=== PATIENT | female | born 1960 | race Caucasian/White ===

== ENCOUNTER 2023-07-21 13:07 | Emergency (ER) | payer OTHER, SELFPAY ==
[2023-07-21 13:10] VITALS: BP 141/97
[2023-07-21 14:21] VITALS: BP 170/82; BMI 35.7
--- NOTE | 2023-07-21 14:37 | ED.GENMED ---
History of Present Illness
General
Chief Complaint: Swelling
Source: patient and spouse
Exam Limitations: none
Time Seen by Provider: 07/21/23 14:17
Nursing documentation reviewed up to this point in time: agreed with
Travel History
Have you had any contact with someone who has COVID-19?: No
Do you have any symptoms of coronavirus? Fever > 100 degrees, chills, cough, shortness of breath, sore throat, loss of taste or smell, muscle aches, or headache?: No
History of Present Illness
History of Present Illness:
63-year-old female history of chronic pain syndrome after back surgery nondrinker non-smoker, no history of DVT PE, presents with lower extremity swelling in her feet after eating Ramen noodles started about 2 weeks ago, then developed some
discoloration of her left foot that improved with walking, said intermittent shortness of breath, today pain in her left thigh noted to have Mendieta's cyst and sounds like, takes vaginal estrogens, no long car trips or plane trips,
Past History
Past History
ED Past Medical History: Other (Back surgery chronic pain syndrome)
ED Past Surgical History: Gynecological and Orthopedic
Social History
Tobacco: Non-smoker
Alcohol: None
Drug: None
Personal:
Living: with family
Employment: Employed
Review of Systems
Review of Systems
All Other Systems: Not applicable
Constitutional: Denies fever or fatigue
Respiratory: Reports trouble breathing; Denies cough
Cardiac: Reports no symptoms
ABD/GI: Reports no symptoms
Musculoskeletal: Reports muscle stiffness and edema
Neurological: Reports no symptoms
Endocrine: Reports no symptoms
Hematologic/Lymphatic: Reports bruising (Previously none now)
Psychiatric: Reports no symptoms
Phy Exam
Physical Exam
Physical Exam:
Physical Exam
General: no apparent distress, not acutely ill
Neck: No jaundice
Heart: s1/s2 regular rate and rhythm, no murmur. equal radial pulses.
Lungs: no acute respiratory distress. clear bilaterally
Abdomen: Nontender
Neuro: alert and oriented. no focal neurological deficits
Skin: no rash
Psychiatric: well kept. interactive and cooperative
Extremities: Mild bilateral foot ankle swelling no pitting edema extremities are warm and well-perfused
Scores
Heart Failure Risk
Heart Failure Risk Score: Not Applicable
Course
Orders/Labs/Results
Orders:
Orders
07/21/23 14:28
Complete Blood Count/With Diff Urgent
Comprehensive Metabolic Panel Urgent
07/21/23 14:33
Add On- LAB Urgent
Tests Added?: pBNP
07/21/23 14:34
CT Chest Pe Study Urgent
Comment:
Reason For Exam: sob leg swelling
US Periph Venous LOWER Ext LT Urgent
Comment:
Reason For Exam: swelling
07/21/23 14:40
Electrocardiogram (*1) Urgent
Reason for Study: Shortness of Breath
EKG- Treatment ONCE
07/21/23 14:45
NT-proBNP Urgent
Troponin I Urgent
Abnormal Lab Results
07/21/23
14:28
Hct 36.8 L %
(37.0-47.0)
Chloride 108 H mmol/L
(98-107)
BUN 24 H mg/dl
(7-17)
Glucose 111 H mg/dl
(70-99)
Total Protein 6.1 L g/dl
(6.3-8.2)
07/21/23 14:28
07/21/23 14:28
Vital Signs
Initial and Last Documented VS:
Initial Vital Signs
Temp Pulse Resp BP Pulse Ox
98.8 F 84 16 141/97 98
07/21/23 13:10 07/21/23 13:10 07/21/23 13:10 07/21/23 13:10 07/21/23 13:10
Last Documented Vital Signs
Temp Pulse Resp BP Pulse Ox
98.8 F 71 16 170/82 98
07/21/23 13:10 07/21/23 14:21 07/21/23 14:21 07/21/23 14:21 07/21/23 14:21
MDM/Problems Addressed
Differential Diagnosis Includes:
DVT PE heart failure muscle strain no signs of acute vascular occlusion
MDM/Problems Addressed:
Lower extremity swelling, shortness of breath
Chronic conditions affecting care:
Back surgery chronic pain
Acute Exacerbation and/or Progression of Chronic Illness:
Back surgery chronic pain syndrome
*Radiology
Radiology exam reviewed: preliminary read by ED provider
*Pulse Oximetry
Patient hypoxic: no
*EKG
Interpreted by ED Provider?: Yes
Interpretation: abnormal
Comparison EKG: no comparison EKG present
Heart Rate: 80
Rate: normal
Rhythm: sinus
Ischemia: non-specific ST changes
*Critical Care Note
Total Time (30-74mins, 75-104mins- exclusive of procedures): Not Applicable
Update Note
Update Note:
Update ultrasound report noted CT report noted troponin noted proBNP noted
ED Attending Note
-
Portions of this chart may have been created with voice recognition software.� Occasional wrong word or��sound alike� substitutions may have occurred due to the inherent limitations of voice recognition software.
Discharge Plan
Departure
Patient Disposition: Home (Routine Discharge)
Date of Disposition: 07/21/23
Time of Disposition: 17:00
Patient with high blood pressure during this ER visit?: Yes
Condition: Good
Discharge Problem:
Dyspnea, Leg swelling, Mendieta's cyst
Instructions: BLOOD PRESSURE, Dependent Edema (DC)
Prescriptions:
No Action
meloxicam [Mobic] 15 MG tablet
15 mg PO DAILY
amoxicillin-pot clavulanate 875-125 mg tablet
1 tab PO BID 10 Days Qty: 20 0RF
Referrals:
Paul Muñoz, DO [Family Provider] -
Interventions
Interventions:
*Risk Screen - Suicide Last Done: 07/21/23 13:10
*General Assessment Last Done: 07/21/23 13:10
*Neglect/Abuse Screening Last Done: 07/21/23 13:10
*ED COVID-19 Vaccine History Last Done: 07/21/23 14:21
ED- Cardiac Assessment Last Done: 07/21/23 14:21
ED- Pulmonary Assessment Last Done: 07/21/23 14:21
ED-Skin Assessment Last Done: 07/21/23 14:21
Discharge Date and Time
Print Language: WELSH
[2023-07-21 14:51] LABS: % Basophils 0.6 % (0-2); % Eosinophils 4.1 % (0-6); % Immature Granulocytes 0.2 % (0-0.5); % Lymphocytes 40.7 % (20.5-51.1); % Monocytes 8.8 % (1.7-9.3); % Neutrophils 45.6 % (42.2-75.2); Absolute Eosinophils 0.2 10^3/uL (0-0.7); Absolute Lymphocytes 2.1 10^3/uL (1.2-3.4); Absolute Monocytes 0.5 10^3/uL (0.1-0.6); Absolute Neutrophils 2.3 10^3/uL (1.4-6.5); Hematocrit 36.8 % (37.0-47.0); Hemoglobin 12.8 g/dL (12.0-16.0); Mean Corp Hgb Conc. 34.8 g/dL (33.0-37.0); Mean Corpuscular Hgb 29.6 pg (27.0-31.0); Mean Platelet Volume 9.2 fL (7.4-10.4); Nucleated Red Blood Cells % 0 %; Platelet Count 175 10^3/uL (130-400); Red Blood Cell Count 4.33 10^6/uL (4.20-5.40); Red Cell Dist. Width 12.5 % (11.5-14.5); White Blood Cell Count 5.1 10^3/uL (4.8-10.8)
[2023-07-21 15:05] LABS: ALT (SGPT) 33 U/L (0-35); AST (SGOT) 34 U/L (14-36); Albumin 3.9 g/dl (3.5-5.0); Alkaline Phosphatase 72 U/L (38-126); Blood Urea Nitrogen 24 mg/dl (7-17); Calcium 9.2 mg/dl (8.4-10.2); Carbon Dioxide 30 mmol/L (22-30); Chloride 108 mmol/L (98-107); Estimated Creatinine Clearance 82 ml/min; Glucose 111 mg/dl (70-99); Potassium 4.2 mmol/L (3.5-5.1); Sodium 142 mmol/L (135-145); Total Bilirubin 0.5 mg/dl (0.2-1.3); Total Protein 6.1 g/dl (6.3-8.2); eGFR > 60.00
[2023-07-21 15:17] LABS: NT-proBNP 106 pg/ml; Troponin I < 0.012 ng/ml
[2023-07-21 17:21] VITALS: BP 158/85
== END 2023-07-21 17:22 | disposition home or self-care (01) ==
LOC: EMR 13:07
PROVIDERS: EMERGENCY PHYSICIAN Emergency Medicine; FAMILY PHYSICIAN Family Medicine
DX: R06.00 Dyspnea, unspecified (principal); M79.652 Pain in left thigh; M79.89 Other specified soft tissue disorders; L98.8 Other specified disorders of the skin and subcutaneous tissue; M71.22 Synovial cyst of popliteal space [Baker], left knee; R03.0 Elevated blood-pressure reading, without diagnosis of hypertension; G89.4 Chronic pain syndrome; M19.90 Unspecified osteoarthritis, unspecified site; Z86.718 Personal history of other venous thrombosis and embolism; Z86.711 Personal history of pulmonary embolism; Z91.048 Other nonmedicinal substance allergy status
CPT/HCPCS: 99285; 71275; 80053; 83880; 84484; 85025; 93005; 93971; Q9967